=== PATIENT | female | born 1975 | race African-American/Black ===

== ENCOUNTER 2020-11-07 17:55 | Emergency (ER) | payer OTHER, BC ==
[~2020-11-07] VITALS: Ht 172.7 cm; Wt 72.6 kg
[~2020-11-07 17:55] MED LIST: NAPROSYN500 MG PO
[2020-11-07 20:28] VITALS: BP 126/80
--- NOTE | 2020-11-08 12:22 | EKG ---
[place] [address] [facility] [place] [address] ELECTROCARDIOGRAM REPORT Name: SHAHANA MOSCOSO Room #: [facility] Grzegorz#: [id number] Admission: 11/07/20 Attend Phys: Discharge: 11/07/20 Date of : 77 Report #: [id number] [facility] ED Test Date: 2020-11-07 Test Time: 19:38:23 Pat Name: SHAHANA MOSCOSO Department: Room: Gender: F Drilling Rig Operator: DIEGO : 1975 Requested By: Anthony Gottlieb Order Number: [id number] MD: Alexis Moreira Measurements Intervals [place] Rate: 67 P: 39 [place]: 167 QRS: 4 QRSD: 75 T: 12 QT: 411 QTc: 434 Interpretive Statements Sinus rhythm Compared to ECG 08/06/2017 23:40:02 Left ventricular hypertrophy no longer present T-wave abnormality no longer present Electronically Signed On 11-08-2020 12:21:49 CDT by Alexis Moreira [email or web address] <ELECTRONICALLY SIGNED> By: Alexis Moreira MD 11/08/20 1221 1938 193 MD JOSE Deleon
== END 2020-11-07 20:33 | disposition home or self-care (01) ==
LOC: ER 17:55
DX: T65.891A Toxic effect of other specified substances, accidental (unintentional), initial encounter (principal); J68.0 Bronchitis and pneumonitis due to chemicals, gases, fumes and vapors; G43.909 Migraine, unspecified, not intractable, without status migrainosus; Z79.1 Long term (current) use of non-steroidal anti-inflammatories (NSAID); Y92.89 Other specified places as the place of occurrence of the external cause